=== PATIENT | male | born 1945 | race Caucasian/White ===

== ENCOUNTER 2017-12-07 14:04 | Inpatient (IN) | payer OTHER ==
[~2017-12-07] VITALS: Ht 182.9 cm; Wt 98.9 kg
--- NOTE | ~2017-12-07 | HC ---
[facility] [place] [address] CONSULTATION Name: PRESTON GUTIÉRREZ Room #: 203-P [facility] IN M.R.#: [id number] Admission: 12/07/17 Attend Phys: Leland Aguirre MD Discharge: Date of : 41 Report #: [id number] THIS REPORT FOR: //name// CC: Leland Cantrell REASON FOR CONSULTATION: Syncope. HISTORY OF PRESENT ILLNESS: The patient is a 72-year-old gentleman with a history of coronary artery disease, prior ventricular fibrillation arrest with [employer] ICD placement. 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 He has a history of recurrent heart failure, which was been managed by both his information systems security officer, Dr. Finn and peg driver. His baseline dry weight is around 210-213 pounds. He had felt well yesterday, eaten lunch and got up to walk back to his apartment and independent living. Elwell lightheaded, had developed cloudy vision and fell to the floor. He thinks he was unconscious for less than one minute. There were no witnesses to the event. He does have a prior history of syncope on 2 prior occasions. His last hospitalization in September was for diabetic coma. He denies symptoms to suggest ICD discharge. No history of chest heaviness or pressure. He denies orthopnea or paroxysmal nocturnal dyspnea. No fevers, chills or night sweats. ALLERGIES: No central neurologic symptoms. MEDICATIONS: Include aspirin 81 mg daily, calcium, iron one tablet twice daily, Lasix 40 mg daily, Humalog 20 units 3 times a day with meals, hydralazine 25 mg 3 times a day, Lantus 15 units every morning, Atrovent, Imdur, isosorbide dinitrate 10 mg 3 times a day, levothyroxine 50 mcg daily, metolazone 2.5 mg Tuesdays and Fridays, sertraline 25 mg daily, sodium bicarbonate 1 tablet 3 times a day, Flomax 0.4 mg daily, Brilinta 90 mg twice daily and vitamin D. PAST MEDICAL HISTORY: His past history and medical records have been reviewed and includes a history of Guillain-[place] syndrome in 2004, three prior carotid endarterectomies, hypothyroidism, Opternative Dyn[employer] ICD placement, ischemic cardiomyopathy with chronic systolic and diastolic heart failure, severe 2-vessel coronary artery disease, history of sustained ventricular tachycardia in 2015 for which the ICD was placed, blind left eye and multiple colonic polypectomies. SOCIAL HISTORY: He quit smoking about 15 years ago. He is a . Son lives in [facility]. He is originally from [place], [place]. FAMILY HISTORY: Notable for father who of cancer. REVIEW OF SYSTEMS: All systems negative except as that noted above. [facility] [address] [place] [address] CONSULTATION Name: PRESTON GUTIÉRREZ Room #: 203-P [facility] IN M.R.#: [id number] Admission: 12/07/17 Attend Phys: Leland Aguirre MD Discharge: Date of : 41 Report #: [id number] PHYSICAL EXAMINATION: GENERAL: He is a pleasant gentleman who is alert and in no distress. VITAL SIGNS: Blood pressure is 130/62 and heart rate is 60 and regular. He is afebrile. Weight is 216 pounds. HEENT: There are neither xanthelasma, subcutaneous xanthomata, oral mucosal or digital cyanosis or kyphoscoliosis present. CHEST: Clear to auscultation and percussion. CARDIOVASCULAR: Regular rate and rhythm with normal S1 and S2. No murmurs or rubs. ABDOMEN: Soft and nontender. EXTREMITIES: Without cyanosis, clubbing or edema. Radial pulses are 2+. NEUROLOGICAL: He is alert with a nonfocal exam. LABORATORY DATA: Recent LDL 56. Hemoglobin A1c 7.6. Sodium 137, potassium 4.1 and creatinine 2.6. Troponin 0.88, 0.64 and 0.45. White count 8.2, hemoglobin 10, hematocrit 30 and platelet count 258. Normal thyroid function studies. RADIOLOGICAL DATA: Lung scan is normal. CT of the head demonstrates multiple old infarcts and atrophic changes. CT of the chest demonstrates a 6.3 x 5 x 5.4 cm right lower lobe mass and [id number]-jc-[id number] mediastinal adenopathy. IMPRESSION: 1. Syncope, uncertain etiology, rule out primary rhythm disorder. This will be easily assessed by interrogation of his implantable cardioverter-defibrillator, possible orthostasis. 2. Ischemic cardiomyopathy; type 2 myocardial infarction in the setting of known severe coronary artery disease. 3. Chronic systolic and diastolic heart failure. 4. Chronic kidney disease, advanced stage 3-4. 5. Lung mass. 6. Peripheral vascular disease with peripheral intervention and 3 prior carotid endarterectomies. 7. Coronary artery disease with known occlusion of the marginal branch and right coronary arteries with mild left main and left anterior descending disease. 8. History of sustained ventricular tachycardia with prior [employer] implantable cardioverter-defibrillator placement ([facility]). RECOMMENDATIONS: 1. Echocardiogram with Doppler. 2. Continue medical therapy for coronary artery disease. 3. Interrogate ICD. 4. Continue usual medication; assess orthostatic vital signs. [address] [address] CONSULTATION Name: PRESTON GUTIÉRREZ Room #: 203-P ADM IN M.R.#: [id number] Admission: 12/07/17 Attend Phys: Leland Aguirre MD Discharge: Date of : 41 Report #: [id number] 5. Pulmonary evaluation for pulmonary mass. This was a new diagnosis for him, not previously described. <ELECTRONICALLY SIGNED> By: Carl Ramirez MD, FACC 12/12/17 1259 [phone] Carl Ramirez MD, FACC /nt
--- NOTE | ~2017-12-07 | 2DMMODE ---
[facility] [address] [place] [place] [address] 2 D/M-MODE ECHOCARDIOGRAM Name: PRESTON GUTIÉRREZ Room #: 203-P ADM IN ..#: [id number] Admission: 12/07/17 Attend Phys: Leland Aguirre MD Discharge: Date of : 41 Date of Service: 12/08/1707 Report #: [id number] THIS REPORT FOR: //name// APPROVED REPORT Study performed: 12/08/2017 08:13:28 EXAM: Comprehensive 2D, Doppler, and color-flow Echocardiogram Patient Location: Echo lab Room #: 203 Status: routine BSA: 2.20 HR: 70 bpm BP: 130/62 mmHg Rhythm: NSR Other Information Study Quality: Good Indications Syncope. Hx: ISCM, stents, ICD, Afib, TIA, PVD, DM. 2D Dimensions RVDd: 41.55 mm IVSd: 14.13 (7-11mm) LVOT Diam: 20.04 (18-24mm) LVDd: 54.41 mm PWd: 13.17 (7-11mm) Ascending Ao: 35.28 (22-36mm) LVDs: 44.22 (25-40mm) Aortic Root: 34.18 mm Volumes Left Atrial Volume (Systole) Single Plane 4CH: 67.88 mL Single Plane 2CH: 80.90 mL LA ESV Index: 36.00 mL/m2 Aortic Valve AoV Peak Nathan.: 2.05 m/s AO Peak Gr.: 16.85 mmHg LVOT Max P.00 mmHg AO Mean Gr.: 8.43 mmHg AO V2 Mean: 1.38 m/s LVOT Max V: 1.00 m/s AO V2 VTI: 42.98 cm DARLENE Vmax: 1.54 cm2 Mitral Valve E/A Ratio: 0.8 [facility] [address] [place] [address] 2 D/M-MODE ECHOCARDIOGRAM Name: PRESTON GUTIÉRREZ Room #: 203-P ADM IN M.R.#: [id number] Admission: 12/07/17 Attend Phys: Leland Aguirre MD Discharge: Date of : 41 Date of Service: 12/08/1707 Report #: [id number] MV Decel. Time: 152.83 ms MV E Max Nathan.: 0.94 m/s MV A Nathan.: 1.12 m/s MV PHT: 44.32 ms IVRT: 79.58 ms Pulmonary Valve PV Peak Nathan.: 1.09 m/s PV Peak Gr.: 4.74 mmHg Pulmonary Vein P Vein S: 0.20 m/s P Vein D: 0.31 m/s P Vein S/D Ratio: 0.65 Tricuspid Valve TR Peak Nathan.: 3.38 m/s RAP Estimate: 15.00 mmHg TR Peak Gr.: 45.67 mmHg PA Pressure: 60.00 mmHg Left Ventricle The left ventricle is normal size. Mild concentric left ventricular hypertrophy. Left ventricular systolic function is moderately decreased. LVEF is 40-45%. Inferobasal aneurysm. Inferolateral and basal septal hypokinesis. Mild diastolic dysfunction is present (impaired relaxation pattern). Right Ventricle The right ventricle is normal size. Device lead is present in the right ventricle. Atria Left atrium is mildly dilated. Right atrium is mildly dilated. Aortic Valve Aortic valve is moderately calcified. No aortic regurgitation is present. Mild aortic stenosis Mitral Valve The mitral valve is normal in structure. Trace to mild mitral regurgitation. No evidence of mitral valve stenosis. Tricuspid Valve The tricuspid valve is normal in structure. Moderate tricuspid regurgitation. Estimated PAP is 55-60mmHg. [address] [address] 2 D/M-MODE ECHOCARDIOGRAM Name: PRESTON GUTIÉRREZ Room #: 203-P [facility] IN M.R.#: [id number] Admission: 12/07/17 Attend Phys: Leland Aguirre MD Discharge: Date of : 41 Date of Service: 12/08/17 0907 Report #: [id number] Pulmonic Valve Pulmonic valve is not well visualized. Trace pulmonic regurgitation. Great Vessels The aortic root is normal in size. The ascending aorta is normal in size. IVC is dilated and collapses <50% with inspiration. Pericardium There is no pericardial effusion. Right pleural effusion noted. <Conclusion> Left ventricular systolic function is moderately decreased. LVEF 40-45%. Inferobasal aneurysm. Inferolateral and basal septal hypokinesis. Mild diastolic dysfunction Aortic valve is moderately calcified. Mild aortic stenosis, no insufficiency The mitral valve is normal in structure. Trace to mild mitral regurgitation. Moderate tricuspid regurgitation. Estimated pulmonary artery pressure of 55-60mmHg. There is no pericardial effusion. <ELECTRONICALLY SIGNED> By: Carl Ramirez MD, FACC 12/08/17906 6 6 Carl Ramirez MD, FACC /INF
--- NOTE | ~2017-12-07 | EEG ---
[facility] [place] [address] ELECTROENCEPHALOGRAM Name: PRESTON GUTIÉRREZ Room #: 203-P [facility] IN M.R.#: [id number] Admission: 12/07/17 Attend Phys: Leland Aguirre MD Discharge: 12/12/17 Date of : 41 Report #: [id number] THIS REPORT FOR: //name// CC: Leland Aguirre [facility] DATE OF SERVICE: 12/08/2017 This patient is being evaluated for the possibility of seizure because he keeps having syncope for which no cause is apparent. The patient's EEG was done by placing the electrode by standard 10-20 system of electrode placement. Both referential and sequential montages were used for recording. Background activity in this patient's EEG is about 11 Hz and 40 microvolts. There is a symmetrical activity. The patient went to sleep and that is associated with bilaterally symmetrical sleep spindle and vertex sharp waves. Throughout the record, no active epileptiform activity was noticed. IMPRESSION: This patient's EEG does not demonstrate any clear-cut epileptiform activity. Thank you very much for this referral. <ELECTRONICALLY SIGNED> By: Quinn Norman MD 12/12/17 [phone] Quinn Norman MD /nt
--- NOTE | ~2017-12-07 | HC ---
[facility] [place] [address] CONSULTATION Name: PRESTON GUTIÉRREZ Room #: 203-P [facility] IN M.R.#: [id number] Admission: 12/07/17 Attend Phys: Leland Aguirre MD Discharge: 12/12/17 Date of : 41 Report #: [id number] THIS REPORT FOR: //name// CC: Leland Aguirre Sandeep [facility] DATE OF SERVICE: 12/09/2017 HISTORY OF PRESENT ILLNESS: This is a 72-year-old male patient who was evaluated by me for any neurological etiology for the patient's syncope. The patient lives in an independent living. He provides some history. The son provided some history. It looks like this patient is having multiple episodes where he has some blurring of the vision. He tends to fall down, but most of the time able to sit down. He closes his eye for about 15 minutes, then he feels better. He may have had some shakiness. He has loss of consciousness. He had an episode today as I understand from the records. His monitor was normal. I do not know what the blood pressure was during that time and whether they checked his blood sugar at that time or not. I reviewed those notes. He has no documented hypoglycemia. REVIEW OF SYSTEMS: Indicate that there is a question of postural hypotension in this patient. Multiple psychotropic medications are being readjusted. He has a lung mass. I carried out the 14-point review of system in this patient. He did not lose any bowel and bladder control during these episodes. He does have cardiac issues and is on multiple medications for his cardiac condition. Looks like these episodes are going on at least for a few months. He has a pacemaker, as well as a defibrillator. His left eye is blind for long time. This was his relevant 14-point review of system. Presently, he is not complaining of any ENT, respiratory, GI, , musculoskeletal, constitutional, dermatological, hematological, psychiatric, throat or allergic symptom associated with present symptomatology. PAST MEDICAL HISTORY: Positive for similar spell. FAMILY HISTORY: Negative for early age stroke. SOCIAL HISTORY: He used to smoke. PHYSICAL EXAMINATION: NEUROLOGY: Indicate he is alert. He is responsive. He can follow simple commands. His speech, concentration, fund of knowledge and memory is at his baseline. He does have blindness in the left eye. His neuromuscular examination is symmetrical. His position sense in both lower extremities is normal. His reflexes are diminished as expected with diabetes. His tone is symmetrical. I could not look at the patient's fundus. No cerebellar sign. GENERAL: The patient is a reasonably developed individual who does not have any [address] [address] CONSULTATION Name: PRESTON GUTIÉRREZ Room #: 203-P [facility] IN M.R.#: [id number] Admission: 12/07/17 Attend Phys: Leland Aguirre MD Discharge: 12/12/17 Date of : 41 Report #: [id number] dysmorphic features of eyes, ears, and face. EYES: His vision and hearing looks adequate. He has no thyroid mass. CARDIAC: Indicates he has a pacemaker and defibrillator. He does not have marked respiratory difficulty or rhonchi. VITAL SIGNS: His blood pressure is 134/63, respiration is 18, pulse is 81, and temperature is 97.6. LABORATORY DATA: His labs indicate hemoglobin of 9.7 and GFR of 21. IMAGING DATA: He did have a CT scan of the head and a carotid Doppler. They do not show any acute abnormality. He does have old infarcts. IMPRESSION: The differential in this patient is between orthostatic hypotension or non-convulsive seizure. Non-convulsive seizures are difficult to evaluate because electroencephalogram is typically normal in these patients. If this patient continues with these episodes and no cardiac etiology is found, we may have to give him a trial with anticonvulsant. 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 That workup is difficult. This is because we cannot do an MRI and we cannot do a CT angiogram him because of his kidney dysfunction. RECOMMENDATIONS: We will see how he does with readjustment of his medication, which can cause postural hypotension. If that is ineffective, we may have to give him a trial with anticonvulsants like Lamictal. I discussed that aspect with them. I will get an EEG done and follow up with you to see how he does in the next few days and decide about further management after that. Thank you very much for this referral and if you have any questions, please feel free to contact me. <ELECTRONICALLY SIGNED> By: Quinn Norman MD 12/12/17 1659 1406 [id number] Quinn Norman MD /nt
--- NOTE | ~2017-12-07 | EKG ---
[address] [address] ELECTROCARDIOGRAM REPORT Name: PRESTON GUTIÉRREZ Room #: 203-P ADM IN M.R.#: [id number] Admission: 12/07/17 Attend Phys: Leland Aguirre MD Discharge: Date of : 41 Report #: [id number] THIS REPORT FOR: //name// [facility] ED Test Date: 2017-12-07 Test Time: 14:08:03 Pat Name: PRESTON GUTIÉRREZ Department: Room: 170 Gender: M Attraction Attendant: TED : 1945 Requested By: Papo Olivera Order Number: [id number] MD: Kevin Mon Measurements Intervals Delta Rate: 67 P: SD: QRS: 59 QRSD: 126 T: 243 QT: 461 QTc: 487 Interpretive Statements Normal sinus rhythm Nonspecific intraventricular conduction delay No previous ECG available for comparison Electronically Signed On 12-07-2017 17:05:55 CDT by Kevin Mon [email or web address] <ELECTRONICALLY SIGNED> By: Kevin Mon MD 12/07/17 1705 1408 1408 MD JASON Love
--- NOTE | ~2017-12-07 | PATH ---
[facility] [address] [facility] [address] PATHOLOGY RPT PROCEDURE Name: PRESTON GUTIÉRREZ Room #: 203-P [facility] IN M.R.#: [id number] Admission: 12/07/17 Date of : 41 Discharge: 12/12/17 Report #: [id number] Path Case #: [id number] Note [facility] Accession Number: [id number] TESTS RESULT FLAG UNITS REF RANGE LAB Clinician Provided Cytology Information No. of containers..01 Other (Miscellaneous) Source: RIGHT PLEURAL FLUID DIAGNOSIS: 02 RIGHT PLEURAL FLUID NEGATIVE FOR MALIGNANT CELLS. PROTEINACEOUS MATERIAL IS PRESENT. THIS INTERPRETATION INCLUDES EVALUATION OF A CELL BLOCK. CHRONIC INFLAMMATORY INFILTRATE. Signed out by: Nia Santoro MD, Pathologist NPI- [id number] Performed by: Ky Woods, Rubber Stamp Dies Inspector ([facility]) Gross description: 01 25 ML, ORANGE, CLOUDY /LCS FLAG LEGEND: L-Low Normal,H-High Normal,LL-Alert Low,HH-Alert High <-Panic Low,>-Panic High,A-Abnormal,AA-Critical Abnormal Performed at: [address] [place] [address] Moisés Campbell MD, [address] [place] [phone] Nia Santoro MD, Specimen Comment: A courtesy copy of this report has been sent to Specimen Comment: [phone]. Specimen Comment: Report sent to Performed at: [address], [place], [place] [id number] MD Moisés Campbell MD Phone: [phone]
[2017-12-07 14:04] VITALS: BP 126/59
[2017-12-07 14:50] LABS: ABSOLUTE NEUTROPHILS 9.2 thou/uL (1.4-8.2); BASOPHILS 0.8 % (0.0-2.0); EOSINOPHILS 2.4 % (0.0-3.0); HEMATOCRIT 32.4 % (42.0-52.0); HEMOGLOBIN 10.8 gm/dL (14.0-18.0); LYMPHOCYTES 3.5 % (24.0-44.0); MCH 31.1 pg (26.0-34.0); MCHC 33.3 g/dL (28.0-37.0); MCV 93.5 fL (80.0-100.0); MONOCYTES 5.7 % (1.0-8.0); PLATELET COUNT 275 thou/uL (150-400); POLYS 87.6 % (36.0-66.0); RBC 3.46 mil/uL (4.50-6.00); RDW 17.7 % (10.5-14.5); WBC 10.5 thou/uL (4.0-11.0)
[2017-12-07 15:41] LABS: CALCIUM 9.2 mg/dL (8.5-10.1); CREATININE 2.6 mg/dL (0.7-1.3); POTASSIUM 4.1 mmol/L (3.5-5.1)
[2017-12-07 16:04] VITALS: BP 136/79
[2017-12-07 16:15] VITALS: BP 150/70
[2017-12-07 17:15] VITALS: BP 148/73
[2017-12-07 17:27] LABS: CHOLESTEROL 117 mg/dL (<200); HDL CHOLESTEROL 51 mg/dL (>40); LDL CHOLESTEROL 49 mg/dL (<100); TC:HDL 2.3 Ratio (Not establshd); TRIGLYCERIDE 87 mg/dL (<150); VLDL 17 mg/dL (<40)
[2017-12-07 19:58] VITALS: BP 151/71
[2017-12-07 22:08] LABS: ALBUMIN 3.2 g/dL (3.4-5.0); DIRECT BILIRUBIN 0.2 mg/dL (<0.1-0.3); TOTAL BILIRUBIN 0.5 mg/dL (<0.1-1.0); TOTAL PROTEIN 8.8 g/dL (6.4-8.2)
[2017-12-07] MEDS ORDERED: ASPIR 8181 MG PO (23:25)
[2017-12-07] MEDS ORDERED: ATORVASTATIN CA40 MG PO (23:27)
[2017-12-07] MEDS ORDERED: NEPHROCAPS SOFT1 CAP PO (23:28)
[2017-12-07] MEDS ORDERED: CALCIUM ACETAT667 MG PO (23:29)
[2017-12-07] MEDS ORDERED: RAYALDEE30 MCG PO (23:29)
[2017-12-07] MEDS ORDERED: IRON325 PO (23:33)
[2017-12-07] MEDS ORDERED: LASIX 40 MG TAB40 M2 PO (23:36)
[2017-12-07] MEDS ORDERED: HUMALOG JU100 UNIT/1 SUBQ (23:38)
[2017-12-07] MEDS ORDERED: HYDRALAZINE 2525 MG PO (23:39)
[2017-12-07] MEDS ORDERED: LANTUSSOLASTAR SUBQ (23:40)
[2017-12-07] MEDS ORDERED: IPRATROPIU0.2 MG/1 M INH (23:41)
[2017-12-07] MEDS ORDERED: IMDUR 30 MG TAB30 M1 PO (23:42)
[2017-12-07] MEDS ORDERED: SYNTHROID50 MCG PO (23:43)
[2017-12-07] MEDS ORDERED: METOLAZONE 2.52.5 MG PO (23:45)
[2017-12-07] MEDS ORDERED: NITROGLYCERIN0.4 MG SUBLING (23:46)
[2017-12-07] MEDS ORDERED: ZOLOFT25 MG PO (23:48)
[2017-12-07] MEDS ORDERED: SODIUM BICARBO650 M3 PO (23:51)
[2017-12-07] MEDS ORDERED: FLOMAX0.4 MG PO (23:52)
[2017-12-07] MEDS ORDERED: VITAMIN D5000 UNIT PO (23:54)
[2017-12-08] VITALS (9 sets, daily range): BP systolic 108–140; BP diastolic 54–71
[2017-12-08] MEDS ORDERED: RAYALDEE30 MCG PO (02:41)
[2017-12-08] MEDS ORDERED: DOXYCYCLINE 10100 MG PO (02:42)
[2017-12-08 04:46] LABS: URINE BILIRUBIN NEGATIVE (Negative); URINE BLOOD NEGATIVE (Negative); URINE CLARITY CLEAR; URINE COLOR YELLOW; URINE GLUCOSE-RANDOM* NEGATIVE (Negative); URINE KETONES NEGATIVE (Negative); URINE LEUKOCYTES-REFLEX NEGATIVE (Negative); URINE NITRITE-REFLEX NEGATIVE (Negative); URINE PROTEIN (DIPSTICK) 2+ (Negative); URINE UROBILINOGEN 0.2 E.U./dl (0.2-1.0)
[2017-12-08 04:48] LABS: ABSOLUTE NEUTROPHILS 6.6 thou/uL (1.4-8.2); BASOPHILS 0.7 % (0.0-2.0); HEMATOCRIT 30.9 % (42.0-52.0); LYMPHOCYTES 5.9 % (24.0-44.0); MCH 30.5 pg (26.0-34.0); MCHC 32.5 g/dL (28.0-37.0); MCV 93.9 fL (80.0-100.0); MONOCYTES 8.2 % (1.0-8.0); PLATELET COUNT 258 thou/uL (150-400); POLYS 81.2 % (36.0-66.0); RBC 3.29 mil/uL (4.50-6.00); RDW 17.5 % (10.5-14.5); WBC 8.2 thou/uL (4.0-11.0)
[2017-12-08 04:54] LABS: CALCIUM 9.5 mg/dL (8.5-10.1); CREATININE 2.6 mg/dL (0.7-1.3); MAGNESIUM 2.2 mg/dL (1.8-2.4); POTASSIUM 4.1 mmol/L (3.5-5.1)
[2017-12-08 04:57] LABS: TROPONIN-I 0.88 ng/mL (<0.06)
[2017-12-08 05:05] LABS: BACTERIA-REFLEX None Seen /HPF (None Seen); CASTS None Seen /LPF (None Seen); CRYSTALS None Seen /LPF (None Seen); MUCUS None Seen strn/LPF (None Seen); SQUAMOUS None Seen /LPF (0-3); URINE RBC None Seen /HPF (0-2); URINE WBC-REFLEX 0-5 Rare /HPF (0-5)
[2017-12-09 04:43] VITALS: BP 132/73
[2017-12-09 05:07] LABS: CALCIUM 9.2 mg/dL (8.5-10.1); CREATININE 2.9 mg/dL (0.7-1.3); POTASSIUM 4.3 mmol/L (3.5-5.1)
[2017-12-09 05:21] LABS: HEMATOCRIT 29.2 % (42.0-52.0); HEMOGLOBIN 9.7 gm/dL (14.0-18.0); MCH 31.2 pg (26.0-34.0); MCHC 33.3 g/dL (28.0-37.0); MCV 93.7 fL (80.0-100.0); RBC 3.12 mil/uL (4.50-6.00); RDW 17.2 % (10.5-14.5); WBC 7.5 thou/uL (4.0-11.0)
[2017-12-09 07:30] VITALS: BP 136/71
[2017-12-09 11:20] VITALS: BP 134/63
[2017-12-09 16:00] VITALS: BP 127/53
[2017-12-09 19:30] VITALS: BP 143/63
[2017-12-10] VITALS (8 sets, daily range): BP systolic 84–155; BP diastolic 45–65
[2017-12-10 05:28] LABS: HEMATOCRIT 30.2 % (42.0-52.0); MCH 31.1 pg (26.0-34.0); MCHC 33.2 g/dL (28.0-37.0); MCV 93.9 fL (80.0-100.0); RBC 3.22 mil/uL (4.50-6.00); RDW 17.6 % (10.5-14.5); WBC 8.6 thou/uL (4.0-11.0)
[2017-12-10 05:40] LABS: CALCIUM 9.3 mg/dL (8.5-10.1); CREATININE 3.4 mg/dL (0.7-1.3); POTASSIUM 4.9 mmol/L (3.5-5.1)
[2017-12-11] VITALS (10 sets, daily range): BP systolic 70–153; BP diastolic 42–77
[2017-12-11 03:08] LABS: HEMATOCRIT 30.6 % (42.0-52.0); MCH 30.6 pg (26.0-34.0); MCHC 32.5 g/dL (28.0-37.0); MCV 94.2 fL (80.0-100.0); RBC 3.25 mil/uL (4.50-6.00); RDW 17.6 % (10.5-14.5); WBC 10.1 thou/uL (4.0-11.0)
[2017-12-11 03:16] LABS: CALCIUM 9.2 mg/dL (8.5-10.1); CREATININE 3.7 mg/dL (0.7-1.3); POTASSIUM 4.9 mmol/L (3.5-5.1)
[2017-12-11 06:43] LABS: INR 1.1; PROTIME 11.3 Seconds (9.3-11.4)
[2017-12-11 11:20] LABS: CLARITY CLOUDY; COLOR DARK YELLOW; SOURCE RIGHT CHEST; TOTAL VOLUME 60 mL
[2017-12-11 11:33] LABS: SOURCE RIGHT CHEST
[2017-12-11 12:27] LABS: BF NUCLEATED CELLS 593; BF RBC 6798
[2017-12-11 14:31] LABS: BF MACROPHAGE 1; BF NEUTROPHILS 1
[2017-12-11 22:05] LABS: BODY FLUID ALBUMIN 1.2 g/dL (()); BODY FLUID AMYLASE 18 U/L (()); BODY FLUID GLUCOSE 148 mg/dL (()); BODY FLUID LDH 126 IU/L (()); BODY FLUID PROTEIN 2.9 g/dL (())
[2017-12-12 04:02] LABS: CALCIUM 9.2 mg/dL (8.5-10.1); CREATININE 3.3 mg/dL (0.7-1.3); POTASSIUM 4.5 mmol/L (3.5-5.1)
[2017-12-12 04:43] LABS: HEMATOCRIT 30.1 % (42.0-52.0); HEMOGLOBIN 10.1 gm/dL (14.0-18.0); MCH 31.8 pg (26.0-34.0); MCHC 33.5 g/dL (28.0-37.0); MCV 95.1 fL (80.0-100.0); RBC 3.17 mil/uL (4.50-6.00); RDW 17.4 % (10.5-14.5); WBC 9.3 thou/uL (4.0-11.0)
[2017-12-12 04:56] VITALS: BP 94/48
[2017-12-12 07:35] VITALS: BP 146/60
[2017-12-12 11:15] VITALS: BP 134/64
[2017-12-12 13:32] VITALS: BP 134/64
[2017-12-12] MEDS ORDERED: PROTONIX40 M1 PO ×2 (13:43→14:19)
[2017-12-12] MEDS ORDERED: NOVOLOG100 UNIT/1 SUBQ ×2 (13:43→14:19)
[2017-12-12] MEDS ORDERED: MIRALAX17 GM PO ×2 (13:43→14:19)
[2017-12-12] MEDS ORDERED: BRILINTA90 MG PO (23:53)
== END 2017-12-12 14:40 | disposition home health service (06) | DRG 280 ==
LOC: ER 14:04 → 2N 15:41 → EROBS 15:41 → 2N 16:27 → ENTRNSPT 12-12 14:23 → EDTRNSPTSTS 12-12 14:26 → 2N 12-12 14:40
PROVIDERS: Emergency Medicine; Hospitalist; Nurse Practitioner; Nurse Practitioner Family; Radiology Diagnostic Radiology
PROC: 0W993ZZ Drainage of Right Pleural Cavity, Percutaneous Approach (ICD-10-PCS; principal; 2017-12-11)
DX: I21.A1 Myocardial infarction type 2 (principal); E43 Unspecified severe protein-calorie malnutrition; I50.43 Acute on chronic combined systolic (congestive) and diastolic (congestive) heart failure; N17.9 Acute kidney failure, unspecified; G61.0 Guillain-Barre syndrome; J90 Pleural effusion, not elsewhere classified; I13.0 Hypertensive heart and chronic kidney disease with heart failure and stage 1 through stage 4 chronic kidney disease, or unspecified chronic kidney disease; N18.4 Chronic kidney disease, stage 4 (severe); R56.9 Unspecified convulsions; H54.62 Unqualified visual loss, left eye, normal vision right eye; I48.91 Unspecified atrial fibrillation; I25.10 Atherosclerotic heart disease of native coronary artery without angina pectoris; E11.51 Type 2 diabetes mellitus with diabetic peripheral angiopathy without gangrene; E11.22 Type 2 diabetes mellitus with diabetic chronic kidney disease; E78.5 Hyperlipidemia, unspecified; Z66 Do not resuscitate; H42 Glaucoma in diseases classified elsewhere; E11.39 Type 2 diabetes mellitus with other diabetic ophthalmic complication; R91.8 Other nonspecific abnormal finding of lung field; E03.9 Hypothyroidism, unspecified; I25.5 Ischemic cardiomyopathy; E11.65 Type 2 diabetes mellitus with hyperglycemia; M62.84 Sarcopenia; F32.9 Major depressive disorder, single episode, unspecified; D63.8 Anemia in other chronic diseases classified elsewhere; N40.0 Benign prostatic hyperplasia without lower urinary tract symptoms; I95.9 Hypotension, unspecified; Z95.810 Presence of automatic (implantable) cardiac defibrillator; Z79.899 Other long term (current) drug therapy; Z79.82 Long term (current) use of aspirin; Z79.4 Long term (current) use of insulin; Z88.6 Allergy status to analgesic agent; Z88.8 Allergy status to other drugs, medicaments and biological substances; Z95.5 Presence of coronary angioplasty implant and graft; Z86.73 Personal history of transient ischemic attack (TIA), and cerebral infarction without residual deficits; Z87.891 Personal history of nicotine dependence; Z80.8 Family history of malignant neoplasm of other organs or systems; Z90.49 Acquired absence of other specified parts of digestive tract; Z68.29 Body mass index [BMI] 29.0-29.9, adult
CPT/HCPCS: 10081

== ENCOUNTER → 2017-12-15 | Outpatient (CLI) | payer OTHER ==
[~2017-12-15] VITALS: Ht 182.9 cm; Wt 95.3 kg
[2017-12-15] VITALS (7 sets, daily range): BP systolic 155–170; BP diastolic 66–79
[~2017-12-15] MED LIST: ASPIR 8181 MG PO; ATORVASTATIN CA40 MG PO; BRILINTA90 MG PO; CALCIUM ACETAT667 MG PO; DOXYCYCLINE 10100 MG PO; FLOMAX0.4 MG PO; HUMALOG JU100 UNIT/1 SUBQ; HYDRALAZINE 2525 MG PO; IMDUR 30 MG TAB30 M1 PO; IPRATROPIU0.2 MG/1 M INH; IRON325 PO; LANTUSSOLASTAR SUBQ; LASIX 40 MG TAB40 M2 PO; METOLAZONE 2.52.5 MG PO; MIRALAX17 GM PO; NEPHROCAPS SOFT1 CAP PO; NITROGLYCERIN0.4 MG SUBLING; NOVOLOG100 UNIT/1 SUBQ; PROTONIX40 M1 PO; RAYALDEE30 MCG PO; SODIUM BICARBO650 M3 PO; SYNTHROID50 MCG PO; VITAMIN D5000 UNIT PO; ZOLOFT25 MG PO
--- NOTE | ~2017-12-15 | PATH ---
[facility] [address] [place] [address] PATHOLOGY RPT PROCEDURE Name: PRESTON HATHAWAY Room #: [facility] M.R.#: [id number] Admission: 12/15/17 Date of : 41 Discharge: Report #: [id number] Path Case #: [id number] [facility] Accession Number: [id number] . 01 Material submitted: . RT LUNG MASS . 01 Clinical history: . Lung mass . 02 Diagnosis: Lung, right lung mass, needle core biopsy: - Benign alveolated lung parenchyma, rare fragments with bronchial mucosa as well as small sized arteries and areas of fibrosis. - Negative for malignancy. (IUV/db; 12/18/17) LBQ/12/18/2017 . 02 Electronically signed: . Nia Santoro MD, Pathologist NPI- [id number] . 01 Gross description: . The specimen is received in formalin, labeled "[place], CT lung biopsy right lung mass", are multiple jennings-white needle cores measuring 0.7 x 0.4 x 0.1 cm in aggregate. The specimen is entirely submitted in A1-A3. (SWS; 12/15/2017) SHS/ . 02 Pathologist provided ICD-10: J84.10 . 02 CPT . 412425 Specimen Comment: A courtesy copy of this report has been sent to Specimen Comment: [phone], , . Specimen Comment: Report sent to , DR ATKINS / DR GARCIA Performed at: [address] [facility], [place] [id number] MD Moisés Campbell MD Phone: [phone] Performed at: [address] [id number] MD Nia Santoro MD Phone: [phone]
[2017-12-15 09:05] LABS: HEMOGLOBIN 10.6 gm/dL (14.0-18.0); MCV 93.8 fL (80.0-100.0); RBC 3.42 mil/uL (4.50-6.00); RDW 17.4 % (10.5-14.5); WBC 7.2 thou/uL (4.0-11.0)
[2017-12-15 09:17] LABS: CREATININE 2.4 mg/dL (0.7-1.3); INR 1.2; POTASSIUM 4.2 mmol/L (3.5-5.1)
== END | disposition home or self-care (01) ==
LOC: LABMALL 08:14 → SPEC 08:14
PROVIDERS: Radiology Vascular & Interventional Radiology
DX: J84.10 Pulmonary fibrosis, unspecified (principal); I13.0 Hypertensive heart and chronic kidney disease with heart failure and stage 1 through stage 4 chronic kidney disease, or unspecified chronic kidney disease; N18.3 Chronic kidney disease, stage 3 (moderate); E11.22 Type 2 diabetes mellitus with diabetic chronic kidney disease; I50.9 Heart failure, unspecified; I25.2 Old myocardial infarction; I25.10 Atherosclerotic heart disease of native coronary artery without angina pectoris; I42.8 Other cardiomyopathies; E78.5 Hyperlipidemia, unspecified; K21.9 Gastro-esophageal reflux disease without esophagitis; I73.9 Peripheral vascular disease, unspecified; M10.9 Gout, unspecified; E03.9 Hypothyroidism, unspecified; M86.9 Osteomyelitis, unspecified; Z95.0 Presence of cardiac pacemaker; Z95.1 Presence of aortocoronary bypass graft; Z82.49 Family history of ischemic heart disease and other diseases of the circulatory system; Z95.5 Presence of coronary angioplasty implant and graft; Z86.73 Personal history of transient ischemic attack (TIA), and cerebral infarction without residual deficits; Z98.890 Other specified postprocedural states; Z79.899 Other long term (current) drug therapy

== ENCOUNTER → 2018-03-19 | Outpatient (CLI) | payer OTHER | LOC: PET 13:23 | DX: J90 Pleural effusion, not elsewhere classified (principal); J98.11 Atelectasis; J84.10 Pulmonary fibrosis, unspecified ==

== ENCOUNTER → 2018-10-11 | Outpatient (CLI) | payer OTHER | LOC: CAT 10-04 16:18 | DX: J90 Pleural effusion, not elsewhere classified (principal); R91.8 Other nonspecific abnormal finding of lung field; K80.20 Calculus of gallbladder without cholecystitis without obstruction ==